=== PATIENT | female | born 1985 | race Two or more races ===

== ENCOUNTER 2018-04-25 09:19 | Emergency (ER) | payer BC ==
--- NOTE | 2018-04-25 09:42 | EDPHY ---
H & P Time Seen by Provider: 04/25/18 09:42 HPI/ROS: Chief complaint. , fall HPI. 33-year-old female was carrying a car seat down the stairs. The car seat caught on the newly installed baby gate. The patient stumbled fell landing on her bottom. She scraped her left elbow. Injured her right great toe. Has some low back pain near tail bone area. No head or neck pain. No abdominal pain or vaginal bleeding or spotting. Patient is 11 and half weeks . 2/para 1. Injury occurred at 8:15 a.m. This morning. ROS Constitutional. no fever/chills, no weakness Eyes. no problems with vision ENT. no sore throat, no nasal drainage Cardiovascular. no chest pain Respiratory. no shortness of breath, no cough Abdominal. no abdominal pain, no nausea/vomiting, no diarrhea . no problems urinating MS. Low back pain and right great toe pain Skin. Abrasion right great toe dorsum Lymph. no swollen glands Neuro. no headache, no dizziness, no difficulty walking or with speech Past Medical/Surgical History: 2, para 1. Previous knee surgery Social History: , nonsmoker, no alcohol Smoking Status: Never smoked Physical Exam: General Appearance: Alert pleasant well-developed female mild distress vital signs are stable Eyes: Pupils equal and round no pallor or injection. ENT, Mouth: Mucous membranes are moist. Respiratory: There are no retractions, lungs are clear to auscultation. Cardiovascular: Regular rate and rhythm. Gastrointestinal: Abdomen is soft and nontender, no masses, bowel sounds normal. Neurological: Awake and alert, sensory and motor exams grossly normal. Skin: Abrasion dorsum right great toe Musculoskeletal: No C, T, lumbar tenderness. Tenderness along the coccyx but no obvious swelling or deformity Extremities right great toe pain with abrasion on the top but no obvious deformity or swelling Psychiatric: Patient is oriented X 3, there is no agitation. Constitutional: Initial Vital Signs Temperature (C) 36.7 C 04/25/18 09:25 Heart Rate 55 L 04/25/18 09:25 Respiratory Rate 18 04/25/18 09:25 Blood Pressure 119/63 04/25/18 09:25 O2 Sat (%) 100 04/25/18 09:25 O2 Delivery Mode Room Air Allergies/Adverse Reactions: No Known Allergies Allergy (Unverified 04/25/18 09:24) Home Medications: Medication Instructions Recorded 04/25/18 Medical Decision Making - Diagnostics Imaging Results: Imaging Impressions Pelvic/Renal Ultrasound 04/25/18 09:56 Impression: There is a single viable intrauterine gestation with a sonographic age of 11 weeks 4 days, noted to have a 6 x 10 x 12 mm anterior edge subchorionic hemorrhage. Findings were discussed with DEUCE BRO MD at 10:39, on 04/25/2018. Toe X-Ray 04/25/18 09:56 Impression: 1. No acute osseous abnormality seen right first toe. X-ray great toe interpreted by me is negative for fracture dislocation Ultrasound reviewed by me and discussed with Dr. Hutchison shows a viable IUP. There is a small anterior subchorionic hemorrhage. ED Course/Re-evaluation: Patient and I discussed not doing x-rays of the coccyx and sacral area as the patient is only 11 half weeks . There is no obvious trauma. She has no neurologic findings. Patient and her are comfortable with no x-ray of this area. Re-evaluation at 10:40 a.m.. The patient, her , and I discussed imaging study results, treatment plan including criteria for return importance of follow -up and further evaluation. She expresses understanding and agreement She has no cramping abdominal pain or vaginal bleeding. The abrasion on her toes cleaned and dressed Differential Diagnosis: I considered fracture, dislocation. We did not x-ray the coccyx and sacrum due to her . Clinically no significant fracture. Viable IUP though slight subchorionic hemorrhage. Departure - Departure Disposition: Home, Routine, Self-Care Clinical Impression: Contusion Qualifiers: Encounter type: initial encounter Contusion area: lower back Qualified Code(s) : S30.0XXA - Contusion of lower back and pelvis, initial encounter Subchorionic hemorrhage in first trimester Qualifiers: Fetus number: single or unspecified fetus Qualified Code(s): O41.8X10 - Other specified disorders of amniotic fluid and membranes, first trimester, not applicable or unspecified; O46.8X1 - Other antepartum hemorrhage, first trimester; O46.8X1 - Other antepartum hemorrhage, first trimester Condition: Good Instructions: Contusion in Adults (ED), Subchorionic Hemorrhage (ED) Additional Instructions: Ice to sore areas next 24 hr. Tylenol for discomfort. Easy activity for the next 24 hr. Return or follow up with your Ob physician for low abdominal discomfort or vaginal bleeding. Follow-up exam with your pusher runner on Saturday or Saturday. Referrals: MICHOACANO GILES [Primary Care Provider] - As per Instructions Lauren Rosa [Non Staff and Non MD] - As per Instructions
[2018-04-25 11:02] VITALS: BP 124/69
== END 2018-04-25 11:00 | disposition home or self-care (01) ==
LOC: CED 09:19
DX: O9A.211 Injury, poisoning and certain other consequences of external causes complicating pregnancy, first trimester (principal); S30.0XXA Contusion of lower back and pelvis, initial encounter; O36.8910 Maternal care for other specified fetal problems, first trimester, not applicable or unspecified; Z3A.12 12 weeks gestation of pregnancy; W10.9XXA Fall (on) (from) unspecified stairs and steps, initial encounter
CPT/HCPCS: 73660-PO; 76856-PO